=== PATIENT | female | born 1965 | race American Indian/Alaskan Native ===

== ENCOUNTER 2016-05-01 10:51 | Emergency (ER) | payer OTHER ==
[2016-05-01 16:31] LABS: Bacteria,Urine 2+ /HPF (Negative); Bilirubin,Urine NEG (Negative); Blood,Urine SM (Negative); Ketones,Urine NEG (Negative); Leukocyte Esterase,Urine LG (Negative); Mucus,Urine FEW /HPF; Nitrite,Urine POS (Negative); Urobilinogen,Urine < 2.0 mg/dL (<2.0)
[2016-05-01 16:32] LABS: WBC,Urine > 182.0 /HPF (0.0-6.0)
--- NOTE | 2016-05-01 17:07 | Emergency Department Report ---
ED Female HPI - General Chief complaint: Urogenital-Female Stated complaint: ABDOMINAL PAIN Time Seen by Provider: 05/01/16 16:15 Source: patient Mode of arrival: Wheelchair Limitations: No Limitations - History of Present Illness Initial comments: 50-year-old -[place] female with a past medical history of diabetes hypo -thyroidism currently unmet hernadez comes in for complaint of lower pelvic pain since Saturday she complains of dysuria and hematuria for 2 days. She denies any nausea vomiting she reports that she feels pressure when she urinates and as well as urinary urgency. She reports that she is premenopausal. - Related Data Previous Rx's Medication Instructions Recorded Last Taken Type Ibuprofen [Motrin 800 MG tab] 800 mg PO Q8HR PRN #30 tablet 05/01/16 Unknown Rx Nitrofurantoin Green/M-Cryst 100 mg PO Q12HR #14 capsule 05/01/16 Unknown Rx [Macrobid CAP] Allergies Allergy/AdvReac Type Severity Reaction Status Date / Time No Known Allergies Allergy Unverified 05/01/16 12:34 ED Review of Systems ROS: Stated complaint: ABDOMINAL PAIN Other details as noted in HPI ED Past Medical Hx - Past Medical History Hx Diabetes: Yes - Surgical History Past Surgical History?: No - Social History Smoking Status: Never Smoker Substance Use Type: None - Medications Home Medications: Home Medications Medication Instructions Recorded Confirmed Last Taken Type Ibuprofen [Motrin 800 MG tab] 800 mg PO Q8HR PRN #30 tablet 05/01/16 Unknown Rx Nitrofurantoin Green/M-Cryst 100 mg PO Q12HR #14 capsule 05/01/16 Unknown Rx [Macrobid CAP] ED Physical Exam - General Limitations: No Limitations General appearance: alert, in no apparent distress - Head Head exam: Present: atraumatic, normocephalic - ENT ENT exam: Present: mucous membranes moist - Respiratory Respiratory exam: Present: normal lung sounds bilaterally - Cardiovascular Cardiovascular Exam: Present: regular rate, normal rhythm, normal heart sounds - GI/Abdominal GI/Abdominal exam: Present: soft, tenderness (suprapubic tenderness). Absent: distended, guarding, rebound - Extremities Exam Extremities exam: Present: normal inspection ED Course Vital Signs 05/01/16 05/01/16 12:30 17:31 Temperature 98.4 F Pulse Rate 57 L Respiratory 17 18 Rate Blood Pressure 124/81 O2 Sat by Pulse 100 Oximetry ED Medical Decision Making - Medical Decision Making Patient's been evaluated by this provider. Urinalysis urine culture and wet prep pelvic exam GC and chlamydia sent out. Patient patient's given a [place] for pain management. She will be discharged on Macrobid 100 mg 1 tablet by mouth twice a day 7 days dispense 14 with no refills and ibuprofen 800 mg 1 tablet by mouth 3 times a day when necessary for pain. Patient recommended to follow up in 1 week for repeat urinalysis. Critical care attestation.: If time is entered above; I have spent that time in minutes in the direct care of this critically ill patient, excluding procedure time. ED Disposition Clinical Impression: UTI (urinary tract infection) Qualifiers: Urinary tract infection type: urethritis Qualified Code(s): N34.2 - Other urethritis Disposition: DISCHARGED TO HOME OR SELFCARE Is pt being admited?: No Does the pt Need Aspirin: No Condition: Stable Instructions: Urinary Tract Infection in Women (ED) Additional Instructions: Repeat antibiotics as prescribed. Recommend for a follow-up with your primary care provider in 1 week for repeat of the urinalysis. Prescriptions: Ibuprofen [Motrin 800 MG tab] 800 mg PO Q8HR PRN #30 tablet PRN Reason: Pain Nitrofurantoin Green/M-Cryst [Macrobid CAP] 100 mg PO Q12HR #14 capsule Referrals: PRIMARY CARE, [Primary Care Provider] - 3-5 Days
[2016-05-01] MEDS ORDERED: NORCO 7.5/325 PO ONE (17:24)
[2016-05-01 18:42] VITALS: BP 121/80
== END 2016-05-01 18:40 | disposition home or self-care (01) ==
LOC: ED 10:51
DX: N39.0 Urinary tract infection, site not specified (principal); N34.2 Other urethritis; E11.9 Type 2 diabetes mellitus without complications
CPT/HCPCS: 81001; 81025; 87076; 87086; 87186; 87210; 87591; 99284